=== PATIENT | female | born 1950 | race Caucasian/White ===

== ENCOUNTER 2018-02-16 16:13 | Emergency (ER) | payer OTHER, MEDICARE ==
--- NOTE | 2018-02-16 16:36 | ER Document Report ---
ED Medical Screen (RME) - General Chief Complaint: Passed Out Prior to Arrival Stated Complaint: STOMACH PAIN, FAINTED Mode of Arrival: Wheelchair Information source: Patient Notes: 68 y.o female presents to the ED with abd and back pain a couple hours ago [place]. She reports that once she got out of the car she got lightheaded and had a syncopal episode. She denies any nausea or vomiting and states that she doesnt remember if she had any heart palpitations prior to passing out. She states that she has eaten and drank fluids today, having lunch and a large iced [place] Pt's reports that she started to fall back once she got out of the car and he tried to catch her, he denies her hitting her head. She denies being on blood thinners. Pt denies any hx of [place]. Pt reports that she still is having her abd and back pain currently. Pt reports a PSHx of cholecystectomy and appendectomy. Pt reports that she has had pain like this in the past and had her gallbladder removed as a result of that pain. I have greeted and performed a rapid initial assessment of the patient. A comprehensive ED assessment and evaluation of the patient, analysis of test results, and completion of the medical decision making process will be conducted by additional ED providers. PHYSICAL EXAM: General: Alert, appears well. HEENT: Normocephalic. Atraumatic. No changes in vision. Dry mucous membranes. Neck: Supple. No midline cervical tenderness to palpation. Cardiovascular: RRR Respiratory: CTAB Abdominal: No distension. Extremities: Moves all four extremities. Neurological: Normal cognition. AAOx4. Normal speech. Psychological: Normal affect. Normal Mood. Skin: Warm. Dry. Normal color. TRAVEL OUTSIDE OF THE [place] IN LAST 30 DAYS: No - Related Data Allergies/Adverse Reactions: No Known Allergies Allergy (Verified 02/16/18 16:40) Physical Exam - Vital signs Vitals: Temp Pulse Resp BP Pulse Ox 97.6 F 72 16 114/62 98 02/16/18 16:27 02/16/18 16:27 02/16/18 16:27 02/16/18 16:27 02/16/18 16:27 Course - Vital Signs Vital signs: Temp Pulse Resp BP Pulse Ox 97.6 F 72 16 145/83 H 99 02/16/18 16:27 02/16/18 16:27 02/16/18 19:00 02/16/18 18:45 02/16/18 19:00 - Laboratory Result Diagrams: 02/16/18 15:22 02/16/18 15:22 Laboratory results interpreted by me: 02/16/18 02/16/18 02/16/18 15:22 15:22 18:48 WBC 20.0 H Seg Neuts % (Manual) 81 H Abs Neuts (Manual) 16.2 H Sodium 146.5 H BUN 25 H Glucose 169 H Urine Glucose (UA) >=500 H Urine Ketones 20 H Urine Urobilinogen 2.0 H Urine Ascorbic Acid 40 H Scribe Documentation - Scribe Written by Jennifer:: Jennifer Sarmiento 02/16/18 [id number] acting as scribe for :: Erick
[2018-02-16] MEDS ORDERED: NORMAL SALINE 250 ML IV ONE (16:43)
[2018-02-16 17:51] LABS: HEMOGLOBIN 13.5 g/dL (12.0-15.5); MEAN CORPUSCULAR HEMOGLOBIN 27.7 pg (27.0-33.4); MEAN CORPUSCULAR HGB CONC 32.9 g/dL (32.0-36.0); MEAN CORPUSCULAR VOLUME 84 fl (80-97); PLATELET COUNT 356 10^3/uL (150-450); RED BLOOD COUNT 4.86 10^6/uL (3.72-5.28); RED CELL DISTRIBUTION WIDTH 13.7 % (11.5-14.0)
[2018-02-16 17:58] LABS: ALANINE AMINOTRANSFERASE 21 U/L (9-52); ALBUMIN 4.6 g/dL (3.5-5.0); ALKALINE PHOSPHATASE 87 U/L (38-126); ANION GAP 18 (5-19); ASPARTATE AMINO TRANSFERASE 29 U/L (14-36); BILIRUBIN,DIRECT 0.3 mg/dL (0.0-0.4); BILIRUBIN,TOTAL 0.3 mg/dL (0.2-1.3); BLOOD UREA NITROGEN 25 mg/dL (7-20); CALCIUM 9.9 mg/dL (8.4-10.2); CARBON DIOXIDE 25 mmol/L (22-30); CHLORIDE 104 mmol/L (98-107); GLUCOSE 169 mg/dL (75-110); POTASSIUM 4.4 mmol/L (3.6-5.0); SODIUM 146.5 mmol/L (137-145); TOTAL PROTEIN 7.9 g/dL (6.3-8.2)
[2018-02-16 18:14] LABS: ABSOLUTE LYMPHOCYTES# (MANUAL) 2.6 10^3/uL (0.5-4.7); ABSOLUTE MONOCYTES # (MANUAL) 1.2 10^3/uL (0.1-1.4); ABSOLUTE NEUTROPHILS# (MANUAL) 16.2 10^3/uL (1.7-8.2); BASOPHILS % (MANUAL) 0 % (0-2); EOSINOPHILS % (MANUAL) 0 % (0-6); LYMPHOCYTES % (MANUAL) 13 % (13-45); MONOCYTES % (MANUAL) 6 % (3-13); SEGMENTED NEUTROPHILS % (MAN) 81 % (42-78); TOTAL CELLS COUNTED 100
[2018-02-16 18:15] LABS: OVALOCYTES SLIGHT; PLATELET COMMENT ADEQUATE; POIKILOCYTOSIS SLIGHT
--- NOTE | 2018-02-16 18:58 | RADIOLOGY REPORT (SQ) ---
EXAM DESCRIPTION: CTA CHEST COMPLETED DATE/TIME: 02/16/2018 6:45 pm REASON FOR STUDY: abd pain, then syncope, r/o dissection, aneurysm COMPARISON: None. TECHNIQUE: CT scan of the chest performed using helical scanning technique with dynamic intravenous contrast injection. Images reviewed with lung, soft tissue and bone windows. Reconstructed coronal and sagittal MPR images reviewed. Additional 3 dimensional post-processing performed to develop Maximal Intensity Projection images (MS P). All images stored on PACS. All CT scanners at this facility use dose modulation, iterative reconstruction, and/or weight based d osing when appropriate to reduce radiation dose to as low as reasonably achievable (ALARA). [facility]: Dose Right [facility]: CareDose [facility]: Dose Right [facility]: Teradose 4D [facility]: Applied StemCell CONTRAST TYPE AND DOSE: contrast/concentration: Isovue 370.00 mg/ml; Total Contrast Delivered: 94.0 ml; Total Saline Delivered: 80.0 ml Contrast bolus optimized for the pulmonary arteries. Not diagnostic for the aorta. RENAL FUNCTION: BUN 25 creatinine 0.7 RADIATION DOSE: . LIMITATIONS: None. FINDINGS: LUNGS AND PLEURA: No masses, infiltrates, or pneumothorax. No pleural effusions or pleura l calcifications. AORTA AND GREAT VESSELS: No aneurysm. No dissection. HEART: No pericardial effusion. No significant coronary artery calcifications. PULMONARY ARTERIES: No emboli visualized in the main pulmonary arteries or the segmental branches. HILAR AND MEDIASTINAL STRUCTURES: No identified masses or abnormal nodes. HARDWARE: None in the chest. UPPER ABDOMEN: See separate report of the CT of the abdomen. THYROID AND OTHER SOFT TISSUES: No masses. No adenopathy. BONES: Moderate scoliosis. No osseous lesions. 3D MIPS: Confirm above findings. OTHER: No other significant finding. IMPRESSION: NORMAL CTA OF THE CHEST. NO PULMONARY EMBOLI. NO AORTIC ANEURYSM OR DISSECTION. COMMENT: Quality ID # 436: Final reports with documentation of one or more dose reduction techniques (e.g., Automated exposure control, adjustment of the mA and/or kV according to patient size, use of iterative reconstruction technique) TECHNICAL DOCUMENTATION: JOB ID: [id number] [employer]- All Rights Reserved Reading location - IP/workstation name: [email or web address]
--- NOTE | 2018-02-16 19:06 | RADIOLOGY REPORT (SQ) ---
EXAM DESCRIPTION: CTA ABDOMEN/PELVIS W WO COMPLETED DATE/TIME: 02/16/2018 6:45 pm REASON FOR STUDY: abd pain, then syncope, r/o dissection, aneurysm COMPARISON: None. TECHNIQUE: CT scan of the abdominal aorta extending to the iliac bifurcation performed with and with out intravenous contrast using helical scanning technique with dynamic intravenous contrast injection . Images reviewed with lung, soft tissue, and bone windows. Reconstructed coronal and sagittal MPR im ages reviewed. All images stored on PACS. Advanced 3D imaging as volume rendering, MIPS, SSD performed? yes All CT scanners at this facility use dose modulation, iterative reconstruction, and/or weight based d osing when appropriate to reduce radiation dose to as low as reasonably achievable (ALARA). [facility]: Dose Right [facility]: CareDose [facility]: Dose Right [facility]: Teradose 4D [facility]: PFSweb CONTRAST TYPE AND DOSE: 94 mL Isovue 370- low osmolar. RENAL FUNCTION: BUN 25 creatinine 0.7 LIMITATIONS: None. FINDINGS: NON-CONTRASTED IMAGING: No significant renal or bladder calcifications. No other significa nt organ calcifications. POST-CONTRAST IMAGING: AORTA AND VESSELS: No aneurysm. No dissection. Renal arteries, SMA, celiac without stenosis. Conside rable infrarenal aortic atherosclerosis and atherosclerosis of the iliac arteries. LUNG BASES: No significant findings. No nodules or infiltrates. LIVER: Normal size. No masses or dilated ducts. SPLEEN: Normal size. No focal lesions. PANCREAS: No masses. No significant calcifications. No adjacent inflammation or peripancreatic fluid collections. Pancreatic duct not dilated. GALLBLADDER: Surgically absent. ADRENAL GLANDS: No significant masses or asymmetry. RIGHT KIDNEY AND URETER: No mass, calculi or urinary tract obstruction. LEFT KIDNEY AND URETER: No mass, calculi or urinary tract obstruction. RETROPERITONEUM: No retroperitoneal adenopathy, hemorrhage or masses. BOWEL AND PERITONEAL CAVITY: No masses or inflammatory changes. No free fluid or peritoneal masses. APPENDIX: Not identified. ABDOMINAL WALL: No masses. No hernias. BONY STRUCTURES: No significant or acute findings. 3-D IMAGING: Confirms the above findings. OTHER: No other significant finding. IMPRESSION: 1. No aortic aneurysm or dissection. Distal aortic and iliac atherosclerosis. 2. No acute findings in the abdomen or pelvis. TECHNICAL DOCUMENTATION: JOB ID: [id number] Quality ID # [id number]: Final reports with documentation of one or more dose reduction techniques (e.g., Au tomated exposure control, adjustment of the mA and/or kV according to patient size, use of iterative reconstruction technique) 2010 [employer]- All Rights Reserved Reading location - IP/workstation name: [email or web address]
[2018-02-16 19:12] LABS: APPEARANCE,URINE CLEAR; BILIRUBIN,URINE NEGATIVE (NEGATIVE); COLOR,URINE YELLOW; GLUCOSE, URINE >=500 mg/dL (NEGATIVE); KETONES,URINE 20 mg/dL (NEGATIVE); LEUKOCYTE ESTERASE,URINE NEGATIVE (NEGATIVE); NITRITE,URINE NEGATIVE (NEGATIVE); PROTEIN,URINE NEGATIVE (NEGATIVE); URINE SPECIFIC GRAVITY 1.021
[2018-02-16] MEDS ORDERED: KETOROLAC TROMETHAMINE INJ/PF 30 MG/1 ML SDV IV ONE (19:23)
[2018-02-16 19:26] LABS: URINE AMPHETAMINES SCREEN NEGATIVE; URINE BARBITURATES SCREEN NEGATIVE; URINE BENZODIAZEPINES SCREEN NEGATIVE; URINE COCAINE SCREEN NEGATIVE; URINE MARIJUANA (THC) SCREEN NEGATIVE; URINE METHADONE SCREEN NEGATIVE; URINE PHENCYCLIDINE SCREEN NEGATIVE
[2018-02-16] MEDS ORDERED: RINGERS SOLUTION,LACTATED 1,000 ML IV ONE (19:52)
[2018-02-16] MEDS ORDERED: LIDOCAINE 5% (700 MG) TRANSDERMAL ADH..PATCH TP ONE (20:14)
--- NOTE | 2018-02-16 20:42 | EKG REPORT ---
SEVERITY:- ABNORMAL ECG - NSR92/MIN NONSPECIFIC T ABNORMALITIES, ANT-LAT LEADS : Confirmed by: Dann Arthur MD 16-Feb-2018 20:41:37
--- NOTE | 2018-02-16 21:35 | ER Document Report ---
ED General - General Chief Complaint: Passed Out Prior to Arrival Stated Complaint: STOMACH PAIN, FAINTED Time Seen by Provider: 02/16/18 16:40 Mode of Arrival: Wheelchair TRAVEL OUTSIDE OF THE [place] IN LAST 30 DAYS: No - HPI Patient complains to provider of: Syncope with abdominal pain Notes: Patient coming in for evaluation of syncope. [place] asked to get out of the car to undergo inspection patient became lightheaded dizzy and passed out patient states she was having some abdominal pain right flank right lower quadrant just prior to this patient states she did fall and was caught by her did not hit her head however did land pretty firmly on her buttocks. Patient now is complaining of more right flank pain and right paraspinal back pain. Patient states the abdominal pain she experienced does have a chronic nature patient states most time when she has this in the past she will normally have some diarrhea afterwards. Patient states pain was little bit different today. Patient otherwise denies any fevers chills nausea vomiting diarrhea patient complains of still having little bit of lower back pain upon my evaluation of the right side. - Related Data Allergies/Adverse Reactions: No Known Allergies Allergy (Verified 02/16/18 16:40) Past Medical History - General Information source: Patient - Social History Smoking Status: Unknown if Ever Smoked Family History: Reviewed & Not Pertinent Patient has suicidal ideation: No Patient has homicidal ideation: No Endocrine Medical History: Reports: Hx Diabetes Mellitus Type 2 Renal/ Medical History: Denies: Hx Peritoneal Dialysis Past Surgical History: Reports: Hx Appendectomy, Hx Cholecystectomy, Hx Gynecologic Surgery - Prolapse, Hx Tonsillectomy Review of Systems - Review of Systems Constitutional: No symptoms reported EENT: No symptoms reported Cardiovascular: Syncope Respiratory: No symptoms reported Gastrointestinal: Abdominal pain Genitourinary: No symptoms reported Female Genitourinary: No symptoms reported Musculoskeletal: No symptoms reported Skin: No symptoms reported Hematologic/Lymphatic: No symptoms reported Neurological/Psychological: No symptoms reported -: Yes All other systems reviewed and negative Physical Exam - Vital signs Vitals: Temp Pulse Resp BP Pulse Ox 97.6 F 72 16 114/62 98 02/16/18 16:27 02/16/18 16:27 02/16/18 16:27 02/16/18 16:27 02/16/18 16:27 Interpretation: Normal - General General appearance: Appears well, Alert - HEENT Head: Normocephalic, Atraumatic Eyes: Normal Pupils: PERRL - Respiratory Respiratory status: No respiratory distress Chest status: Nontender Breath sounds: Normal Chest palpation: Normal - Cardiovascular Rhythm: Regular Heart sounds: Normal auscultation Murmur: No - Abdominal Inspection: Normal Distension: No distension Bowel sounds: Normal Tenderness: Nontender. No: McBurney's point, Lee's sign, Guarding, Rebound Organomegaly: No organomegaly - Back Back: Normal, Tender - Minimal paraspinal tenderness in the right side also in the right flank area to palpation - Extremities General upper extremity: Normal inspection, Nontender, Normal color, Normal ROM , Normal temperature General lower extremity: Normal inspection, Nontender, Normal color, Normal ROM , Normal temperature, Normal weight bearing. No: Minerva's sign - Neurological Neuro grossly intact: Yes Cognition: Normal Orientation: AAOx4 Ten Sleep Coma Scale Eye Opening: Spontaneous Joann Coma Scale Verbal: Oriented Joann Coma Scale Motor: Obeys Commands Ten Sleep Coma Scale Total: 15 Speech: Normal Motor strength normal: LUE, RUE, LLE, RLE Sensory: Normal - Psychological Associated symptoms: Normal affect, Normal mood - Skin Skin Temperature: Warm Skin Moisture: Dry Skin Color: Normal Course - Re-evaluation Re-evalutation: 02/17/18 00:50 Patient with leukocytosis however no clear etiology for infection. CT scan was performed no signs of dissection no signs of acute intra-abdominal pathology. Patient did have positive orthostatics with reproduction of symptoms which is consistent with the patient's presentation and symptoms. Patient feeling better with IV fluids. Patient will be discharged home this time cardiac enzymes negative EKGs not show any acute pathology. The patient has syncope as the patient's syncope is not suggestive of pulmonary embolus, cardiac ischemia, aortic dissection, or other serious etiology. Given the extremely low risk of these diagnoses further testing and evaluation for these possibilities does not appear to be indicated at this time. The patient has been instructed to return if the symptoms worsen or change in any way. - Vital Signs Vital signs: Temp Pulse Resp BP Pulse Ox 97.6 F 85 11 L 145/101 H 98 02/16/18 16:27 02/16/18 20:00 02/16/18 21:48 02/16/18 21:48 02/16/18 21:48 - Laboratory Result Diagrams: 02/16/18 15:22 02/16/18 15:22 Laboratory results interpreted by me: 02/16/18 02/16/18 02/16/18 15:22 15:22 18:48 WBC 20.0 H Seg Neuts % (Manual) 81 H Abs Neuts (Manual) 16.2 H Sodium 146.5 H BUN 25 H Glucose 169 H Urine Glucose (UA) >=500 H Urine Ketones 20 H Urine Urobilinogen 2.0 H Urine Ascorbic Acid 40 H Discharge - Discharge Clinical Impression: Right flank pain Syncope Qualifiers: Syncope type: unspecified Qualified Code(s): R55 - Syncope and collapse Condition: Good Disposition: HOME, SELF-CARE Instructions: Anti-Inflammatory Medication ([facility]), Low Back Pain ([facility]), Syncopal Episode ([facility]) Additional Instructions: CT scans today and laboratory studies did not show any significant pathology for your any pain or your dizziness. Your vital signs do show that she will orthostatic whenever he change position there is good increase in your heart rate and your also symptomatic. This can be from dehydration. I will highly recommend she follow-up with your primary care physician. Please make sure you are drinking plenty water please fluids with electrolytes. Return to the ER for any other concerns. Recommend taking anti-inflammatory medication and also Tylenol 650 mg to 1000 mg for your pain. SHe may take this dose of Tylenol 3 times a day
[2018-02-16 22:14] VITALS: BP 145/101
== END 2018-02-16 21:55 | disposition home or self-care (01) ==
LOC: ER 16:13
DX: R55 Syncope and collapse (principal); R10.9 Unspecified abdominal pain; R10.31 Right lower quadrant pain; M54.5 Low back pain; E11.9 Type 2 diabetes mellitus without complications
CPT/HCPCS: 93005; 99284; 96361; 96374; 36415; 80307 ×2; 85025; 80053; 81001; 84484; 71275; 74174; 93010; J1885; J7050; J7120